=== PATIENT | female | born 1950 | race Caucasian/White ===

== ENCOUNTER → 2016-09-27 | Outpatient (CLI) | payer OTHER ==
[~2016-09-27] MED LIST: ASPIRIN EC81 MG PO; B COMPLETE1 EACH PO; CEFUROXIME250 MG PO; ELAVIL 25 MG TA25 MG PO; FIBER0.52 GM PO; FISH OIL 1,0001 EACH PO; GARLIC1000 MG PO; INVOKANA300 MG PO; JANUVIA 100 MG100 MG PO; LIPITOR TAB 2020 MG PO; LOPRESSOR50 MG PO; MAGNESIUM250 M1 PO; MILK THISTLE175 MG PO; MULTIVITAMINS1 EAC1 PO; NEURONTIN 300300 MG PO; NOVOLOG100 UNIT/1 SQ; PAXIL10 MG PO; PRILOSEC OTC20 MG PO; SELENIUM200 MC2 PO; TOUJEO SQ; VITAMIN C 500500 MG PO; VITAMIN C500 M1 PO; ZESTORETIC 20-1 EAC1 PO
== END ==
LOC: RAD 07:58
DX: Z12.11 Encounter for screening for malignant neoplasm of colon (principal)
CPT/HCPCS: 74270

== ENCOUNTER → 2016-11-02 | Outpatient (CLI) | payer OTHER | LOC: US 13:07 | DX: M79.604 Pain in right leg (principal); M79.605 Pain in left leg; R09.89 Other specified symptoms and signs involving the circulatory and respiratory systems | CPT/HCPCS: 93925 ==